=== PATIENT | female | born 1975 | race Caucasian/White ===

== ENCOUNTER 2016-11-23 11:03 | Inpatient (IN) | payer MEDICAID, OTHER ==
[2016-11-23 11:51] LABS: ABSOLUTE NEUTROPHIL COUNT 1.9 K/mm3 (1.8-7.7); BASO % 0.8 % (0.2-1.0); EOS % 1.1 % (0.9-2.9); HEMATOCRIT 40.1 % (37.0-47.0); HEMOGLOBIN 14.6 gm/l (12.0-16.0); IMM NEUT% 0.3 % (0-1); LYMPH # 0.9 (1.0-4.8); LYMPH % 25.8 % (15-45); MEAN CELL VOLUME 102.6 fl (81.0-99.0); MEAN CORPUSCULAR HEMOGLOBIN 37.3 pg (27.0-31.0); MEAN CORPUSCULAR HGB CONC 36.4 g/dl (33.0-37.0); MEAN PLATELET VOLUME 10.8 fl (7.4-10.4); MONO # 0.7 (0.0-0.8); MONO % 19.9 % (4-12); NEUT % 52.1 % (43-75); PLATELET COUNT 78 K/mm3 (130-400); RED CELL DISTRIBUTION WIDTH 12.3 % (11.5-14.5)
[2016-11-23] MEDS ORDERED: HYDROMORPHONE HCL 0.5 MG/0.5 ML SYRINGE ONE (12:00)
[2016-11-23] MEDS ORDERED: ONDANSETRON 4 MG/2ML 2 ML VIAL ONE (12:00)
[2016-11-23 12:01] LABS: ALB/GLOB RATIO 0.9 (>1.0); ALBUMIN 3.9 gm/dL (3.5-5.7); CALCIUM 10.6 mg/dL (8.6-10.3)
[2016-11-23] MEDS ORDERED: POTASSIUM CHLORIDE 20MEQ/100ML 100 ML IV ONE (12:26)
[2016-11-23] MEDS ORDERED: HYDROMORPHONE HCL 1 MG/ML SYRINGE ONE (12:35)
[2016-11-23] MEDS ORDERED: LACTATED RINGERS 1,000 ML ONE (12:35)
[2016-11-23 13:42] VITALS: BMI 25.4
[2016-11-23] MEDS ORDERED: ACETAMINOPHEN 325 MG TABLET PO PRN (15:22)
[2016-11-23] MEDS ORDERED: BLISTEX LIPSTICK 1 EACH TP PRN (15:22)
[2016-11-23] MEDS ORDERED: SODIUM CHLORIDE 0.9% 100 ML IV PRN (15:22)
[2016-11-23] MEDS ORDERED: BISACODYL 10 MG SUP PR PRN (15:22)
[2016-11-23] MEDS ORDERED: BISACODYL 5 MG TABLET.EC PO PRN (15:22)
[2016-11-23] MEDS ORDERED: DIPHENHYDRAMINE HCL 50 MG/1 ML VIAL IV PRN (15:22)
[2016-11-23] MEDS ORDERED: MENTHOL/CETYLPYRD 1 EACH LOZENGE PO PRN (15:22)
[2016-11-23] MEDS ORDERED: MAGNESIUM HYDROXIDE 30 ML UDCUP PO PRN (15:22)
[2016-11-23] MEDS ORDERED: ACETAMINOPHEN 650 MG SUP PR PRN (15:22)
[2016-11-23] MEDS ORDERED: ENOXAPARIN SODIUM 40 MG/0.4 ML SYRINGE SUB-Q SCH (15:30)
[2016-11-23] MEDS ORDERED: SODIUM CHLORIDE 0.9% 500 ML IV SCH (15:30)
[2016-11-23] MEDS ORDERED: ONDANSETRON 4 MG/2ML 2 ML VIAL IV PRN (15:37)
[2016-11-23] MEDS ORDERED: FONDAPARINUX SODIUM 2.5 MG/0.5 ML SYRINGE SUB-Q SCH (15:45)
[2016-11-23] MEDS ORDERED: NICOTINE 7 MG PATCH 1 EACH TD PRN (15:50)
[2016-11-23] MEDS ORDERED: PUMP TUBING ONE ×2 (16:29→19:36)
[2016-11-23] MEDS: SODIUM CHLOR 0.9% w 40mEq KCL 1,000 ML IV SCH (16:34)
[2016-11-23] MEDS: HYDROMORPHONE HCL 0.5 MG/0.5 ML SYRINGE IV PRN ×2 (16:38→19:45)
[2016-11-23 17:30] LABS: MAGNESIUM 1.3 mg/dL (1.9-2.7)
[2016-11-23] MEDS: MULTIVITAMINS 10 ML in SODIUM CHLORIDE 0.9% 1,000 ML IV SCH (17:51)
[2016-11-23] MEDS ORDERED: SODIUM CHLORIDE 0.9% FLUSH 10 ML ONE (17:54)
[2016-11-23] MEDS ORDERED: IV START KIT ONE (17:54)
--- NOTE | 2016-11-23 18:04 | HP ---
FREDI ANAYA [id number] CHIEF COMPLAINT: Abdominal pain. HISTORY OF PRESENT ILLNESS: The patient is a 41-year-old female with prior several admissions for recurrent pancreatitis, initially attributed to alcohol, but subsequent episodes felt to be idiopathic, who has had some prodromal symptoms over the previous week, with marked worsening last night, with the pain across her upper abdomen and to the back. She has had poor oral intake, particularly throughout four or five days last week. She vomited four to six times each day here recently and has just taken water today. She notes some occasional chills. She states the symptoms are generally similar to previous hospitalizations for pancreatitis. She denies any recent alcohol use. PAST MEDICAL HISTORY: Remarkable for: 1. Recurrent pancreatitis. 2. She has a history of chronic alcohol related liver disease. 3. 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 4. She has a previous history of C-difficile. 5. History of upper extremity DVT in 2014 associated with IV, and lower extremity DVTs in 2011. 6. She has a history of alcohol withdrawal in March of 2015. 7. She has seen Dr. Parsons in the past and underwent an MRI of the abdomen in January of 2016, but is not aware of having had an MRCP. 8. Her last CT of the abdomen was in December of 2015. PAST SURGICAL HISTORY: 1. Tympanostomy tubes as a child. 2. Adenoids. 3. She had an open reduction internal fixation of a left wrist fracture at age 13. 4. She has had left ankle surgery from previous injuries. 5. Old records also indicate a left eyelid surgery that she does not recall. ALLERGIES: Listed as intolerances to morphine and Celexa. MEDICATIONS: She reports taking a vitamin. She is otherwise not taking any prescriptions. SOCIAL HISTORY: She lives with two roommates in [place]. She is . She has two kids. 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 She smokes approximately a quarter pack of cigarettes a day, but would like a nicotine patch because she gets bored when she is hospitalized. She reports her last drink was more than a year ago, although she does acknowledge having two glasses of wine at some point since her last hospitalization. She denies marijuana use. She denies methamphetamine use. She has no particular mosque affiliation. HOBBIES: Include cleaning house, go grocery shopping, and [employer]. FAMILY HISTORY: She is adopted, although indicates her father of hepatitis C and drug abuse. REVIEW OF SYSTEMS: HEENT - eyes are okay, maybe a little blurry. Ears are okay. Nose is okay. Nose has been dry with the weather. Mouth has been okay. She reports having all of her teeth fixed except for two of them. Neck - her neck has been okay. Chest - is okay. Pulmonary - she occasionally uses an inhaler if it is cold outside. Heart - no complaints, although heart can go fast sometimes. GI - stomach, she has the pain as mentioned before, along with some nausea and vomiting, but no diarrhea. She did have some constipation since last week. - no urinary complaints. 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 She does not think she is . Extremities - arms are okay. Left wrist can be sore and her ankle can be sore when the weather is cold. Legs are otherwise okay. She notes her skin is quite dry. She does lewis using a tanning bed. Neurologic - she has not had a history of stroke. Psych - mood has been okay, although she can be down at times. She did have a fall and bruised the singletary on the right. She reports otherwise feeling safe at home and indicates that nobody is abusing her. PHYSICAL EXAMINATION: GENERAL: A lewis female. She reports being a little hungry and would like to have some fruit. VITAL SIGNS: Temperature 99.0. Pulse 92. Blood pressure 120/83. Respirations 16. Saturation 100% on room air. HEENT: Head is normocephalic, atraumatic. Eyes are unremarkable. Ears are normal. Nose is normal. Mouth, dentition is mostly okay. A few teeth are absent. NECK: Supple. LUNGS: Generally clear to auscultation bilaterally. No wheezes or rhonchi heard. HEART: Regular rate and rhythm. ABDOMEN: Soft. Bowel sounds are normal. Slightly tender across the left upper quadrant and across the upper abdomen, but no significant hepatosplenomegaly. No rebound, no guarding, no masses, and no hernia. Slight CVA tenderness to percussion, but otherwise unremarkable. Lower abdomen is unremarkable. GENITOURINARY: Exam is deferred. BREASTS: Exam is deferred. EXTREMITIES: Legs with some bruising on the right singletary. Left knee with a scab noted, attributed to a fall regarding the bruise, and states that her electric blanket had actually injured her left knee. Her feet are unremarkable, without ulceration. SKIN: Some slightly dry scaling skin is noted throughout. Her skin is quite lewis throughout, but is lewis consistent with use of a tanning bed rather than a hemochromatosis or a hypoadrenal state. NEUROLOGIC: The patient is alert and answers questions appropriately. No neurologic deficits evident. LABS: White count 3.6, hemoglobin 14.6 and platelets 78. MCV is 102.6. Sodium 126, potassium 2.4, chloride 81, C02 of 28, BUN of 12, creatinine 0.6 and glucose 199. Calcium is 10.6, bilirubin 3.9, AST of 45, ALT of 13, alkaline phosphatase of 108, albumin 3.9, globulin 4.3 and lipase 343. IMAGING: No imaging per this hospitalization. ASSESSMENT/PLAN: 1. Recurrent pancreatitis. Plan to keep NPO with ice chips. IV fluids. Pain medicines and nausea medicines. Will check an ultrasound of the abdomen. 2. History of alcoholic liver disease. Check ultrasound to evaluate her elevated bilirubin at 3.9, and check a prothrombin time as well. 3. Hypokalemia secondary to vomiting. Plan potassium replacement and medicine for nausea. 4. Hyponatremia attributed to vomiting and pancreatitis. Plan IV fluids. 5. Macrocytosis. Plan multivitamin. Previous B-12 and folate levels were checked and were normal. 6. Previous low vitamin D in 2015. Will be rechecking. The patient does lewis extensively. 7. She has elevated calcium. We will recheck ionized calcium, vitamin D and PTH which was previously elevated, presumed due to liver disease. 8. Thrombocytopenia, attributed to liver disease. Plan to recheck and will monitor. 9. A 41-year-old female. Plan to check a test. 10. Venous thrombosis prophylaxis. Anticipate use of Arixtra, using this instead of enoxaparin due to her low platelet count. E/trr cc: Dr. Radames Parsons
[2016-11-23] MEDS ORDERED: MAGNESIUM SULFATE 2 G/50 ML 2 G in Premix (Water) 50 ml 1 EACH IV ONE (18:30)
--- NOTE | 2016-11-23 19:13 | US ---
Name: FREDI ANAYA Exam: Abdominal ultrasound Comparison: 02/24/2016 Clinical history: Pancreatitis Findings: The liver is normal size at 16.2 cm in greatest dimension. The liver is very echodense and difficult to penetrate. A small lesion could easily be missed on this exam. There is no dominant abnormality at this time. Where seen, liver capsule is smooth. There is no intra or extrahepatic biliary dilation. Common bile duct is normal caliber at 6.6 mm where seen. The pancreas is minimally seen. The gallbladder is 8.7 cm in greatest dimension and contains sludge. Wall thickness is normal at 2.2 mm. Calculi are not clearly identified. Spleen is normal size with a volume of 178 cm. Kidneys are normal size with right at 12.2 in the left at 11.3 and there is no hydronephrosis or perinephric fluid. Aorta and IVC are normal. There is no ascites. Impression: 1. Diffusely echodense liver compatible with a diffuse hepatocellular disease which is most commonly fatty infiltration 2. Gallbladder sludge 3. No biliary dilation 4. Extremely poor visualization of the pancreas 5. No free fluid Note: Findings were discussed Dr. Vasquez at 1909 hours
[2016-11-23] MEDS ORDERED: FLU VACC 2016-17 (36MO-64Y)/PF 60 MCG/0.5 ML SYRINGE IM V ONE (21:00)
[2016-11-23] MEDS: DOCUSATE SODIUM 100 MG CAPSULE PO SCH (21:17)
[2016-11-23 21:49] LABS: INR 1.5
[2016-11-24] MEDS: SODIUM CHLOR 0.9% w 40mEq KCL 1,000 ML IV SCH ×3 (00:15→10:55)
[2016-11-24] MEDS: HYDROMORPHONE HCL 0.5 MG/0.5 ML SYRINGE IV PRN ×6 (00:49→17:16)
[2016-11-24 07:19] LABS: ABSOLUTE NEUTROPHIL COUNT 1.7 K/mm3 (1.8-7.7); BASO % 1.1 % (0.2-1.0); EOS # 0.1 (0.0-0.5); EOS % 2.5 % (0.9-2.9); HEMATOCRIT 32.4 % (37.0-47.0); HEMOGLOBIN 11.4 gm/l (12.0-16.0); IMM NEUT% 0.5 % (0-1); LYMPH # 1.1 (1.0-4.8); LYMPH % 28.8 % (15-45); MEAN CELL VOLUME 103.8 fl (81.0-99.0); MEAN CORPUSCULAR HEMOGLOBIN 36.5 pg (27.0-31.0); MEAN CORPUSCULAR HGB CONC 35.2 g/dl (33.0-37.0); MEAN PLATELET VOLUME 11.3 fl (7.4-10.4); MONO # 0.7 (0.0-0.8); MONO % 19.5 % (4-12); NEUT % 47.6 % (43-75); PLATELET COUNT 62 K/mm3 (130-400); RED CELL DISTRIBUTION WIDTH 12.5 % (11.5-14.5)
[2016-11-24 07:32] LABS: ALB/GLOB RATIO 0.9 (>1.0); ALBUMIN 2.8 gm/dL (3.5-5.7); CALCIUM 8.6 mg/dL (8.6-10.3)
[2016-11-24] MEDS: DOCUSATE SODIUM 100 MG CAPSULE PO SCH ×2 (08:38→21:13)
[2016-11-24] MEDS: LACTULOSE 20 G/30 ML UDCUP PO SCH (08:38)
[2016-11-24] MEDS ORDERED: POTASSIUM CHLORIDE 40 MEQ in SODIUM CHLORIDE 0.9% 500 ML IV ONE ×2 (09:30→15:30)
[2016-11-24] MEDS ORDERED: MAGNESIUM SULFATE 2 G/50 ML 2 G in Premix (Water) 50 ml 1 EACH IV ONE (13:15)
--- NOTE | 2016-11-24 14:34 | PDOC43 ---
- Subjective Chief Complaint: epigastric pain Subjective: Reports Pain Tolerable (on IV pain meds), Denies Fever - Objective Vital Signs Temperature 98.4 F 11/24/16 12:00 Pulse Rate 85 11/24/16 12:00 Respiratory Rate 18 11/24/16 12:00 Blood Pressure 96/55 11/24/16 12:00 O2 Saturation by Pulse Oximetry 100 11/24/16 12:00 Oxygen Delivery Method Room Air Oxygen Flow Rate 0 Intake and Output 11/23/16 11/24/16 11/25/16 06:59 06:59 06:59 Intake Total 3578 Output Total 950 Balance 2628 General: Alert, Oriented x3, Cooperative, No Acute Distress HEENT: Mucous membr. moist/pink Lungs: Clear to Auscultation Bilaterally Cardiovascular: Regular Rate and Rhythm Abdomen: Soft, Normal Bowel Sounds, Non-Distended, Mild Distention, No Tenderness Extremities: No Edema Laboratory 11/24/16 06:20 11/24/16 06:20 11/24/16 11/24/16 11/23/16 06:30 06:20 16:55 RBC 3.12 L MCV 103.8 H MCH 36.5 H PT 17.0 H Estimated GFR 178 H Magnesium 1.5 L 1.3 L Total Bilirubin 3.0 H Total Protein 5.8 L Albumin 2.8 L Albumin/Globulin Ratio 0.9 L Lipase 171 H Parathyroid Hormone 4.0 L Current Medications: Current meds reviewed in EMR. - Problems: Assessment/Plan (1) Pancreatitis, recurrent Status: Acute Assessment/Plan: acute on chronic pancreatitis, lipase improving-advance to clears (2) Alcoholic liver disease, unspecified Status: Chronic Assessment/Plan: chronic, severe alcoholic fatty liver disease also associated with hepatitis B unclear if active or just a carrier, patient remains abstinent from alcohol-was referred to [facility] in past but did not keep the appointment (3) Hypokalemia, gastrointestinal losses Status: Acute Assessment/Plan: severe, improving-cont replacing (4) Hyponatremia Status: Acute Assessment/Plan: present on admit, improving (5) Hypomagnesemia Status: Acute Assessment/Plan: replacing (6) Low serum parathyroid hormone (PTH) Status: Acute Assessment/Plan: of unclear significance in the setting of normal ionized calcium levels and normal vitamin D levels- no further workup VTE Prophylaxis: mech measures Disposition: likely home in 1-3 days
[2016-11-24] MEDS ORDERED: IV START KIT ONE (14:38)
[2016-11-24] MEDS: MULTIVITAMINS 10 ML in SODIUM CHLORIDE 0.9% 1,000 ML IV SCH (19:17)
[2016-11-25] MEDS: HYDROMORPHONE HCL 0.5 MG/0.5 ML SYRINGE IV PRN ×3 (02:32→16:13)
[2016-11-25 07:11] LABS: ABSOLUTE NEUTROPHIL COUNT 1.4 K/mm3 (1.8-7.7); BASO % 0.6 % (0.2-1.0); EOS # 0.1 (0.0-0.5); HEMATOCRIT 30.5 % (37.0-47.0); HEMOGLOBIN 10.6 gm/l (12.0-16.0); IMM NEUT% 0.6 % (0-1); LYMPH # 1.1 (1.0-4.8); LYMPH % 30.3 % (15-45); MEAN CELL VOLUME 107.4 fl (81.0-99.0); MEAN CORPUSCULAR HEMOGLOBIN 37.3 pg (27.0-31.0); MEAN CORPUSCULAR HGB CONC 34.8 g/dl (33.0-37.0); MEAN PLATELET VOLUME 10.7 fl (7.4-10.4); MONO # 0.9 (0.0-0.8); MONO % 26.3 % (4-12); NEUT % 40.2 % (43-75); PLATELET COUNT 72 K/mm3 (130-400); RED CELL DISTRIBUTION WIDTH 13.3 % (11.5-14.5)
[2016-11-25 07:33] LABS: ALB/GLOB RATIO 0.9 (>1.0); ALBUMIN 2.6 gm/dL (3.5-5.7); CALCIUM 8.2 mg/dL (8.6-10.3); MAGNESIUM 1.9 mg/dL (1.9-2.7)
[2016-11-25] MEDS: LACTULOSE 20 G/30 ML UDCUP PO SCH (09:19)
[2016-11-25] MEDS: DOCUSATE SODIUM 100 MG CAPSULE PO SCH ×2 (09:19→23:04)
--- NOTE | 2016-11-25 16:35 | PDOC43 ---
- Subjective Chief Complaint: epigastric pain Abdominal pain has resolved, wants to eat regular foods. C/o low back pain due to bed rest. - Objective Vital Signs Temperature 98.1 F 11/25/16 15:46 Pulse Rate 94 11/25/16 15:46 Respiratory Rate 15 11/25/16 15:46 Blood Pressure 103/64 11/25/16 15:46 O2 Saturation by Pulse Oximetry 100 11/25/16 15:46 Oxygen Delivery Method Room Air Oxygen Flow Rate 0 Intake and Output 11/24/16 11/25/16 11/26/16 06:59 06:59 06:59 Intake Total 3578 4523 740 Output Total 950 Balance 2628 4523 740 General: Alert, Oriented x3, Cooperative, No Acute Distress HEENT: Mucous membr. moist/pink Lungs: Clear to Auscultation Bilaterally Cardiovascular: Regular Rate and Rhythm Abdomen: Soft, Normal Bowel Sounds, No Tenderness, No Masses Extremities: Normal Pulses, No Edema Skin: Other (jaundiced) Neurological: Normal Speech Psych/Mental Status: Normal Mood Laboratory 11/25/16 06:15 11/25/16 06:15 11/25/16 06:15 RBC 2.84 L MCV 107.4 H MCH 37.3 H Anion Gap 6 L BUN 2 L Estimated GFR 178 H Calcium 8.2 L Total Bilirubin 2.9 H AST 44 H Total Protein 5.5 L Albumin 2.6 L Albumin/Globulin Ratio 0.9 L Lipase 169 H Current Medications: Current meds reviewed in EMR. - Problems: Assessment/Plan (1) Pancreatitis, recurrent Status: Acute Assessment/Plan: acute on chronic pancreatitis, advance to diabetic diet (2) Hyperglycemia Status: Acute Assessment/Plan: May have endocrine failure of the pancreas due to recurrent pancreatitis, evaluate for DM. (3) Hyponatremia Status: Chronic Assessment/Plan: mild, stable. (4) Pancytopenia Status: Chronic Assessment/Plan: Due to chronic pancreatitis and chronic liver failure, no treatment. (5) Hypokalemia, gastrointestinal losses Status: Acute Assessment/Plan: severe, improving-cont replacing (6) Hypomagnesemia Status: Acute Assessment/Plan: replacing (7) Alcoholic liver disease, unspecified Status: Chronic Assessment/Plan: Chronic liver failure with INR of 1.5 and Albumin of 2.6 due to alcohol abuse ( in remission) and chronic viral hepatitis. She will need to f/u with hepatology/liver transplant service or go on hospice likely within the next year. VTE Prophylaxis: mech measures and auto-anticoagulated from liver disease. Disposition: likely home in 1-2 days.
[2016-11-25] MEDS ORDERED: OXYCODONE HCL 5 MG TABLET PO PRN (16:36)
[2016-11-25] MEDS: INSULIN ASPART (DOSE) 100 UNITS/1 ML SUB-Q PRN ×2 (17:09→21:11)
[2016-11-25] MEDS: PANTOPRAZOLE 40 MG TABLET DR PO SCH (17:09)
[2016-11-25] MEDS ORDERED: PUMP TUBING ONE (17:10)
[2016-11-25] MEDS ORDERED: POTASSIUM CHLORIDE 40 MEQ in SODIUM CHLORIDE 0.9% 500 ML IV ONE (17:10)
[2016-11-25 18:49] LABS: A1C-GLYCOHEMOGLOBIN 0.5 g/dl; HEMOGLOBIN-GLYCO 10.4 g/dl
[2016-11-25] MEDS: MULTIVITAMINS 10 ML in SODIUM CHLORIDE 0.9% 1,000 ML IV SCH (20:04)
[2016-11-26 07:19] LABS: CALCIUM 8.2 mg/dL (8.6-10.3)
[2016-11-26 07:38] VITALS: BP 100/68
[2016-11-26] MEDS: LACTULOSE 20 G/30 ML UDCUP PO SCH (08:01)
[2016-11-26] MEDS: DOCUSATE SODIUM 100 MG CAPSULE PO SCH (08:01)
[2016-11-26] MEDS: PANTOPRAZOLE 40 MG TABLET DR PO SCH (08:01)
--- NOTE | 2016-11-26 08:22 | PDOC5 ---
ADMIT DATE: 11/23/16 DISCHARGE DATE: 11/26/16 ADMISSION DIAGNOSES: recurrent pancreatitis PROCEDURES PERFORMED THIS HOSPITALIZATION: abdominal ultrasound CONSULTATIONS: none HOSPITAL COURSE: This is a 41 year old presented with recurrent pancreatitis. She was given IVF and pain medication and made NPO. She had rapid resolution of symptoms and was advanced to a diabetic diet on 11/25. On 11/26 she feels well and is stable for discharge. - Exam Vital Signs Temperature 97.8 F 11/26/16 07:37 Pulse Rate 84 11/26/16 07:37 Respiratory Rate 20 11/26/16 07:37 Blood Pressure 100/68 11/26/16 07:37 O2 Saturation by Pulse Oximetry 98 11/26/16 07:37 Oxygen Delivery Method Room Air Oxygen Flow Rate 0 General: Alert, Oriented x3, Cooperative, No Acute Distress HEENT: Mucous membr. moist/pink Lungs: Clear to Auscultation Bilaterally Cardiovascular: Regular Rate and Rhythm Abdomen: Soft, Normal Bowel Sounds, No Tenderness, No Masses Extremities: Normal Pulses, No Edema Skin: Other (jaundice) Neurological: Normal Speech Psych/Mental Status: Flat Affect - Results Laboratory 11/25/16 06:15 11/26/16 05:30 11/26/16 11/26/16 11/25/16 07:14 05:30 21:04 Anion Gap 7 L BUN 1 L Estimated GFR 178 H POC Capillary Glucose 142 H 217 H Hemoglobin A1c Calcium 8.2 L Lipase 96 H 11/25/16 11/25/16 16:40 06:15 Anion Gap BUN Estimated GFR POC Capillary Glucose 284 H Hemoglobin A1c 6.4 H Calcium Lipase - Problems:Assessment/Plan (1) Pancreatitis, recurrent Status: Acute Assessment/Plan: acute on chronic pancreatitis, acute episode resolved, discharge. (2) Hyperglycemia Status: Acute Assessment/Plan: May have endocrine failure of the pancreas due to recurrent pancreatitis, A1c is 6.4, discharge on diabetic diet and f/u with PCP (3) Hyponatremia Status: Chronic Assessment/Plan: mild, stable. (4) Pancytopenia Status: Chronic Assessment/Plan: Due to chronic pancreatitis and chronic liver failure, no treatment. (5) Hypokalemia, gastrointestinal losses Status: Acute Assessment/Plan: improving-cont replacing (6) Hypomagnesemia Status: Acute Assessment/Plan: resolved (7) Alcoholic liver disease, unspecified Status: Chronic Assessment/Plan: Chronic liver failure with INR of 1.5 and Albumin of 2.6 due to alcohol abuse ( in remission) and chronic viral hepatitis. She will need to f/u with hepatology/liver transplant service or go on hospice likely within the next year. - Disposition: Disposition: home today - Discharge Plan Forms: Discharge Instructions Prescriptions: Potassium Chloride [K-DUR 20 MEQ SR TAB (SHF)] 20 meq PO DAILY #30 [email or web address] Follow-Up: Radames Hurst MD [Primary Care Provider] - 12/01/16 3:10 pm Condition: Stable Disposition: Home
== END 2016-11-26 09:44 | disposition home or self-care (01) | DRG 439 ==
LOC: ED 11:03 → MS 13:07
PROVIDERS: ADMIT Family Medicine; ATTEND Family Medicine
DX: K86.1 Other chronic pancreatitis (principal); B19.10 Unspecified viral hepatitis B without hepatic coma; E87.1 Hypo-osmolality and hyponatremia; K70.9 Alcoholic liver disease, unspecified; F10.21 Alcohol dependence, in remission; F17.210 Nicotine dependence, cigarettes, uncomplicated; E87.6 Hypokalemia; D75.89 Other specified diseases of blood and blood-forming organs; D69.6 Thrombocytopenia, unspecified